=== PATIENT | female | born 1950 | race Caucasian/White ===

== ENCOUNTER 2025-01-09 15:11 | Outpatient (CLI) | payer MEDICARE, OTHER, SELFPAY ==
--- NOTE | ~2025-01-09 | XR_ITS ---
EXAM: XR knee RT 3V DATE: 01/09/2025 15:31 HISTORY: Pain in right knee . COMPARISON: None available. FINDINGS: Decreased mineralization. No fracture or dislocation. No lytic or blastic lesion. Mild med ial joint space narrowing. Medial and patellofemoral compartment osteophytosis. Loss of valgus alignm ent. Quadriceps enthesopathy. No erosion or periosteal change. Soft tissues within normal limits. IMPRESSION: Mild bicompartmental right knee osteoarthritis. Reviewed, dictated and finalized at location K.
== END 2025-01-09 15:12 | disposition home or self-care (01) ==
LOC: MICIMG 15:17
PROVIDERS: PCP Physician Assistant; Visit Provider Physician Assistant
DX: M17.11 Unilateral primary osteoarthritis, right knee (principal)
CPT/HCPCS: 73562